=== PATIENT | male | born 1995 | race Two or more races ===

== ENCOUNTER 2021-11-02 09:55 | Emergency (ER) | payer MEDICAID, OTHER, SELFPAY ==
[2021-11-02 10:10] VITALS: BP 132/85; PULSE 77; RESP 16; TEMP 36.1; O2SAT 98; BMI 26.8
--- NOTE | 2021-11-02 10:55 | ED.WOUNDLAC ---
HPI - Wound/Laceration General Chief Complaint: Wound/Laceration Stated Complaint: Thumb Lac Time Seen by Provider: 11/02/21 10:45 Source: patient Mode of arrival: ambulatory Limitations: no limitations History of Present Illness HPI narrative: 26 year old male presents to ED for left thumb laceration. Patient states this morning he was cutting with a kitchen knife and cut his thumb by accident. Patient has complete range of motion of thumb with sensation and just came to the ED to be evaluated see for any stitches. Patient denies any other trauma. Related Data Previous Rx's Medication Instructions Recorded cephalexin 500 mg capsule 500 mg PO QID 7 days #28 caps 11/02/21 Allergies Allergy/AdvReac Type Severity Reaction Status Date / Time No Known Allergies Allergy Verified 11/02/21 10:10 Review of Systems Review of Systems: left thumb laceration Yes all other systems are reviewed and are negative [facility] Social History Social History Advance Directives: No Advance Directives Information Provided: No Physical Exam Vital Signs: Vital Signs: Last Vital Signs Temp 97 F 11/02/21 10:10 Pulse 77 11/02/21 10:10 Resp 16 11/02/21 10:10 BP 132/85 11/02/21 10:10 Pulse Ox 98 11/02/21 10:10 O2 Del Method 11/02/21 10:10 BMI result Body Mass Index 26.8 Const: General: cooperative, healthy appearing, comfortable, no acute distress, well developed, alert, awake and Physically active Orientation/consciousness: oriented to time and patient oriented x3 HEENT: Head: Yes normal to inspection, Yes No palpable skull fracture present, Yes normocephalic, Yes atraumatic and No abrasion Eyes: General: appearance normal, both eyes and all related structures Neck: Neck: Yes normal visual inspection, Yes full ROM, Yes no lymphadenopathy, Yes no meningeal signs, Yes trachea midline, Yes supple, No anterior neck swelling and No tender Chest: Chest palpation & inspection: normal inspection of the chest and normal palpation of entire chest wall Resp: Effort & Inspection: normal respiratory effort and able to speak in complete sentences Cardio: Jugular venous distension: no JVD Heart sounds: S1 normal heart sound present and S2 normal heart sound present GI: Inspection: Yes normal to inspection and No abdominal wall ecchymosis Palpation (GI): Soft to palpation, not firm, nontender, no guarding and not rigid : General: No CVA tenderness and Yes no CVA tenderness Back/Spine/Pelvis: Back: no CVA tenderness, No CVA tenderness and No back tenderness Skin: General skin exam: no rashes or lesions noted and elasticity normal Trauma: laceration (left thumb) Neuro: General: oriented to time, patient oriented x3, gait normal, tone normal and no meningeal signs Cranial nerves: Yes CN's II-XII intact bilaterally Extrem: General: Yes normal to inspection and Yes full ROM Hand/finger images: 1. Positive for superficial laceration. Complete range of motion of thumb. Negative for tendon injury. Sensation intact. Capillary refills intact. Whole extremity motor/neuro/vascular exam intact. Psych: Appearance: grossly normal, well kempt and not disheveled Course Course Course Narrative: No need for x-ray. Not suspecting fracture. Patient with the range of motion of finger. It was a clean cut with a knife. Tdap and lidocaine order for suture repair. Reevaluation(s) Reevaluation #1: With 6 mL digital block patient still was not able to tolerate procedure. Another 4ml lidocaine was placed directly into the wound. Wound was cleaned with sterile saline Betadine iodine. Sec 3 nylon suture was used. Three sutures placed. Time: 12:38 MDM - Wound/Laceration MDM Narrative Medical decision making narrative: Laceration repair Discharge Plan Discharge Clinical Impression: Laceration Patient Disposition: Home, Self-Care Instructions: Laceration (ED) Additional Instructions: Regrese al servicio de urgencias de inmediato por cualquier hinchaz?n, enrojecimiento, secreci?n de pus, mal olor, fiebre, escalofr?os, incapacidad para stain remover los dedos, entumecimiento o cualquier otro s?ntoma preocupante. Las suturas deben retirarse en 9 d?as. Por favor, alla un seguimiento con el PCP. Prescriptions: New cephalexin 500 mg capsule 500 mg PO QID 7 Days Qty: 28 0RF Stand Alone Forms: Work/School Release Interventions: ED Discharge Assessment Last Done: 11/02/21 12:48 Discharge Date/Time: 11/02/21 12:50 Print Language: Icelandic
[2021-11-02] MEDS: Diphth,Pertus(ACell),Tet Adult 0.5 ML SYRINGE IM (11:11)
[2021-11-02] MEDS: Lidocaine HCl 1 % MPF 2 ML VIAL INFILTRATI ×5 (11:13→11:49)
[2021-11-02] MEDS: Ondansetron ODT 4 MG TAB.RAPDIS TRANSLINGU (11:48)
== END 2021-11-02 12:50 | disposition home or self-care (01) ==
PROVIDERS: Emergency Provider Student in an Organized Health Care Education/Training Program
DX: S61.012A Laceration without foreign body of left thumb without damage to nail, initial encounter (principal); W26.0XXA Contact with knife, initial encounter; Y93.G1 Activity, food preparation and clean up; Y92.030 Kitchen in apartment as the place of occurrence of the external cause; Y99.9 Unspecified external cause status
CPT/HCPCS: 12001; 90471; 90715; 99283; 99284